=== PATIENT | female | born 1950 | race Caucasian/White ===

== ENCOUNTER 2017-03-31 14:25 | Inpatient (IN) | payer MEDICARE ==
[~2017-03-31] VITALS: Ht 162.6 cm; Wt 79.8 kg
--- NOTE | 2017-03-31 14:26 | NUR ---
BB FAMILY: GPS ADMISSION, NEEDS EVAL/CLEARANCE. VSS.
--- NOTE | 2017-03-31 14:55 | NUR ---
PURCHASING EXPEDITOR AT BEDSIDE BLOOD SAMPLE COLLECTED
[2017-03-31 14:58] LABS: BASOPHILS # (AUTO) 0.1 /CMM (0.0-0.2); BASOPHILS % (AUTO) 1.6 % (0.0-2.0); EOSINOPHILS # (AUTO) 0.2 /CMM (0.0-0.7); EOSINOPHILS % (AUTO) 2.4 % (0.0-6.0); HEMATOCRIT 38 % (33-45); HEMOGLOBIN 12.8 g/dL (11.5-14.8); LYMPHOCYTES # (AUTO) 1.5 /CMM (0.8-4.8); LYMPHOCYTES % (AUTO) 22.2 % (20.0-44.0); MEAN CORPUSCULAR HEMOGLOBIN 30 PG (26.0-33.0); MEAN CORPUSCULAR HGB CONC 34 g/dl (31.0-36.0); MEAN CORPUSCULAR VOLUME 89 fL (82-100); MONOCYTES # (AUTO) 0.5 /CMM (0.1-1.30); MONOCYTES % (AUTO) 7.3 % (2.0-12.0); NEUTROPHILS # (AUTO) 4.6 /CMM (1.8-8.9); NEUTROPHILS % (AUTO) 66.5 % (43.0-81.0); PLATELET COUNT (AUTO) 277 /CMM (150-450); RDW COEFFICIENT OF VARIATION 12.7 (11.5-15.0); RED BLOOD CELL COUNT(AUTO) 4.27 MIL/uL (4.0-5.2); WHITE BLOOD COUNT (AUTO) 6.9 K/uL (4.3-11.0)
[2017-03-31 15:11] LABS: CALCIUM, SERUM 8.9 mg/dL (8.5-10.1); CARBON DIOXIDE 34 mmol/L (21-32); CHLORIDE 102 mmol/L (98-107); GFR 55 mL/min (>60); GLUCOSE 83 mg/dL (74-106); POTASSIUM 3.6 mmol/L (3.5-5.1); SODIUM SERUM 140 mmol/L (136-145); UREA NITROGEN, BLOOD 21 mg/dL (7-18)
[2017-03-31 15:13] LABS: APPEARANCE,URINE Clear (CLEAR); BILIRUBIN,URINE Negative (NEGATIVE); BLOOD, URINE Negative Ery/uL (NEGATIVE); COLOR,URINE Yellow (YELLOW); KETONES,URINE Negative (NEGATIVE); LEUKOCYTE ESTERASE ,URINE Small (NEGATIVE); NITRITE, URINE Negative (NEGATIVE); PH,URINE 5.5 (5.0-8.0); PROTEIN,URINE Negative (NEGATIVE); UGLUCOSE Negative (NEGATIVE); UROBILINOGEN,URINE 0.2 EU/dL (0.2)
[2017-03-31 15:16] LABS: ALANINE AMINOTRANSFERASE 18 U/L (12-78); ALBUMIN 3.9 g/dL (3.4-5.0); ALCOHOL, BLOOD < 3 mg/dL (0-0); ALKALINE PHOSPHATASE 83 U/L (46-116); ASPARTATE AMINOTRANSFERASE 24 U/L (15-37); BILIRUBIN,DIRECT 0.1 mg/dL (0.0-0.2); BILIRUBIN,TOTAL 0.3 mg/dL (0.2-1.0); TOTAL PROTEIN, SERUM 7.9 g/dL (6.4-8.2)
[2017-03-31 15:17] LABS: ACETAMINOPHEN 0 ug/ml (10-30); SALICYLATE 0.9 mg/dL (2.8-20.0)
[2017-03-31 15:29] LABS: ADD URINE CULTURE NO; BACTERIA,URINE None seen /HPF (None Seen); RBC,URINE TOO NUMEROUS TO COUN /HPF (0-2); SQUAMOUS EPITHELIAL CELL,UR Moderate /HPF (None Seen)
[2017-03-31 15:31] LABS: CANNABINOID, URINE NEGATIVE (NEGATIVE); PHENCYCLIDINE SCREEN,URINE NEGATIVE (NEGATIVE)
--- NOTE | 2017-03-31 16:04 | NUR ---
CALLED FRANK CHAOW FOR PSYCH EVAL ETA 30 MIN.
[2017-03-31] MEDS ORDERED: CHOL100030 PO (16:51)
[2017-03-31] MEDS ORDERED: FISH1CAP16 PO (16:51)
[2017-03-31] MEDS ORDERED: ESCI20TA PO (16:51)
[2017-03-31] MEDS ORDERED: CYCL-343 PO ×2 (16:51)
[2017-03-31] MEDS ORDERED: VITA1CAP PO (16:51)
[2017-03-31] MEDS ORDERED: QUET200T PO (16:51)
[2017-03-31] MEDS ORDERED: BISM262T14 PO (16:51)
[2017-03-31] MEDS ORDERED: TRAZ-144 PO (16:51)
[2017-03-31] MEDS ORDERED: ALBU8.5H2 INH (16:51)
[2017-03-31] MEDS ORDERED: LORA10TA7 PO (16:51)
[2017-03-31] MEDS ORDERED: CRAN1CAP7 PO (16:51)
[2017-03-31] MEDS ORDERED: ASPI-991 PO (16:51)
[2017-03-31] MEDS ORDERED: GUAI100S27 PO (16:51)
[2017-03-31] MEDS ORDERED: ALPR0.5T PO (16:51)
[2017-03-31] MEDS ORDERED: RIVA1PAT11 TD (16:51)
[2017-03-31] MEDS ORDERED: FLUT1DIS3 INH (16:51)
--- NOTE | 2017-03-31 18:30 | NUR ---
GAVE REPORT TO ANTHONY SANDERSON PSYCH MD DR KAISER ADMITTING. WAITING FOR ART TO SEE PATIENT . ROOM 214.
--- NOTE | 2017-03-31 19:13 | NUR ---
ART SAW PT HOLD 5150 PT TRASNFER TO THE [facility] VIA
[2017-03-31 19:30] VITALS: BP 147/86
--- NOTE | 2017-03-31 19:30 | NUR ---
GPS ADMISSION NOTE, RECEIVED PATIENT FROM THE [facility]. PATIENT ARRIVED ON THIS UNIT AT 1930 VIA WHEEL CHAIR WITH 1 INFORMATION TECHNOLOGY INTERN ESCORT. PATIENT ADMITTED ON A 5150 HOLD FOR GD. PER HOLD PATIENT WAS AT FACILITY BEING AGGRESSIVE AND COMBATIVE TO STAFF. PATIENT IS UNABLE TO PROVIDE SELF CARE AT THIS TIME. THE 5150 WAS REVIEWED AND THE DOCUMENTATION IN THE 5150 HOLD APPEARS TO REFLECT THE PRESENTATION OF THE PATIENT. UPON FACE TO FACE ASSESSMENT PATIENT IS CURRENTLY LYING IN BED AWAKE, HAS NO S/S OR COMPLAINTS OF PAIN. PATIENT IS DISPLAYING NO S/S OF APPARENT DISTRESS. PATIENT BREATHING IS UNLABORED WITH EQUAL RISE AND FALL OF THE CHEST. PATIENT IS ALERT AND ORIENTATED X 2 ON 2 LITERS OF O2 VIA NASAL CANNULA . PATIENT HAS 1 TO 1 SITTER FOR O2. PATIENT ASSISTED WITH TURING AND REPOSITIONING Q2HR AND PRN FOR COMFORT AND CIRCULATION. PATIENT HAS NO NEEDS AT THIS TIME. PATIENT IS NOTED TO BEING WITHDRAWN, DEPRESSED, DISHEVELED, DISORGANIZED, CONFUSED, COOPERATIVE, AND NEEDS REDIRECTION. PATIENT DENIES SUICIDE IDEATIONS AND HOMICIDAL IDEATIONS AT THIS TIME. PATIENT IS UNDER THE PSYCHIATRIC CARE OF DR. SANDERSON AND THE MEDICAL CARE OF DR KAISER. PATIENT BELONGINGS WERE INVENTORIED AND CHECKED FOR CONTRABAND. ALL CONTRABAND REMOVED AND STORED IN PATIENT HALLWAY LOCKER. PATIENT ADVANCED DIRECTIVES PREFERENCE, IMMUNIZATIONS QUESTIONER, NECESSARY PAPERWORK, AND SKIN ASSESSMENT COMPLETED. PATIENT ORIENTATED TO ROOM, FLOOR, AND STAFF WITH ALL QUESTIONS ANSWERED. PATIENT EDUCATED ON THE USE OF THE CALL ALVA. PATIENT BED SIDE RAILS ARE UP X 2 FOR SAFETY. PATIENT BED IS LOCKED, LOW AND I WILL CONTINUE TO MONITOR THIS PATIENT Q 15 MIN WITH THE HELP OF STAFF TO MAINTAIN SAFETY.
[2017-03-31] MEDS ORDERED: MAGNESIUM HYDROXIDE 30 ML UDC PO PRN (20:30)
[2017-03-31] MEDS ORDERED: MAG HYDROX/AL HYDROX/SIMETH 30 ML UDC PO PRN (20:30)
[2017-03-31] MEDS ORDERED: ACETAMINOPHEN 325 MG TABLET PO PRN (20:30)
[2017-03-31] MEDS ORDERED: ALBUTEROL SULFATE 8 GM HFA.AER.AD IH PRN (22:00)
[2017-04-01 04:57] VITALS: BP 147/86
[2017-04-01 07:09] LABS: CHOLESTEROL 259 mg/dL (<200); CREATININE 0.9 mg/dL (0.6-1.3); HDL CHOLESTEROL 66 mg/dL (40-60); LDL 170 mg/dL (0-99); TRIGLYCERIDES 41 mg/dL (30-150)
[2017-04-01 08:15] VITALS: BP 118/69
[2017-04-01] MEDS ORDERED: ALBUTEROL FS 2.5 MG/3 ML VIAL.NEB NEB PRN (08:30)
[2017-04-01] MEDS: CYCLOBENZAPRINE 10 MG TABLET PO SCH ×2 (08:57→16:05)
[2017-04-01] MEDS: CHOLECALCIFEROL 1,000 UNIT TABLET (VIT D3) PO SCH (08:57)
[2017-04-01] MEDS: VITAMIN B COMP W-C 1 TAB TABLET PO SCH (08:57)
[2017-04-01] MEDS: ASPIRIN EC 81 MG TABLET.DR PO SCH (08:57)
[2017-04-01] MEDS: LORAZEPAM 0.5 MG TABLET PO PRN (09:03)
[2017-04-01] MEDS: RIVASTIGMINE TARTRATE 4.6 MG PATCH.TD24 TD SCH (09:03)
[2017-04-01] MEDS: FLUTICASONE/SALMETEROL DISKUS IH SCH ×2 (09:55→16:06)
[2017-04-01 16:00] VITALS: BP 115/78
[2017-04-01] MEDS: QUETIAPINE FUMARATE 25 MG TABLET PO SCH (16:05)
--- NOTE | 2017-04-01 16:57 | NUR ---
[id number]: NOTIFIED CENTER MACHINE OPERATOR MARISA CURIEL ABOUT LAB RESULTS FOR 03/31/17: CO2= 34, BUN= 21, LDL CHOLESTEROL MEASURD= 170, HDL CHOLESTEROL=66, URINE RBC= TOO NUMEROUS TO COUNT, URINE WBC= 3-5. NO NEW ORDERS GIVEN AT THIS TIME
--- NOTE | 2017-04-01 17:27 | NUR ---
[id number]: SPOKE WITH SIERRA BERGERON POWER OF CELL TOWER CLIMBER AT AND PT IS ON DNR STATUS. NOTIFIED MARISA CURIEL AND ORDER TO CHANGE STATUS FROM FULL CODE TO DNR.
[2017-04-01 20:41] VITALS: BP 109/70
[2017-04-01] MEDS: CEPHALEXIN MONOHYDRATE 500 MG CAPSULE PO SCH (21:16)
[2017-04-01] MEDS: ZOLPIDEM TARTRATE 5 MG TABLET PO PRN (21:17)
[2017-04-01] MEDS: QUETIAPINE FUMARATE 100 MG TABLET PO SCH (21:17)
--- NOTE | 2017-04-02 01:10 | NUR ---
GPS RN PT SUDDENLY BECAME AGGRESSIVE TOWARDS STAFF. SAYING "GET OUT OF MY ROOM". PT HAS BEGAN TO STRIKE AT STAFF. PT IS VERY PARANOID ABOUT THE STAFF BEING IN HER ROOM. PT IS EXHIBITING AUDIBLE WHEEZING. PT WAS ASKED MULTIPLE TIMES TO CALM DOWN, PT IS UNABLE TO UNDERSTAND. PT STATING "IM GOING TO CRISTOBAL YOU, YOU FUCKING ASSHOLE". PT CONTINUES TO STRIKE AT STAFF. PT MANUALLY RESTRAINED BY STAFF. PT DID RECEIVE AMBIEN FOR SLEEP LAST NIGHT, FIRST DOSE. WILL CONTINUE TO MONITOR.
--- NOTE | 2017-04-02 01:20 | NUR ---
GPS BELT MACHINE OPERATOR CONTINUES TO TRY TO KEEP PT CALM AND SAFE. PT IS VERY COMBATIVE. LUCILLE TOMAS AT BEDSIDE, DANNA AT BEDSIDE TO ASSIST FOR PTS AGGRESSIVE BEHAVIOR. WILL CONTINUE TO MONITOR.
[2017-04-02 08:00] VITALS: BP 154/79
[2017-04-02] MEDS: FLUTICASONE/SALMETEROL DISKUS IH SCH ×2 (08:24→16:54)
[2017-04-02] MEDS: CHOLECALCIFEROL 1,000 UNIT TABLET (VIT D3) PO SCH (08:24)
[2017-04-02] MEDS: CEPHALEXIN MONOHYDRATE 500 MG CAPSULE PO SCH ×2 (08:24→21:18)
[2017-04-02] MEDS: VITAMIN B COMP W-C 1 TAB TABLET PO SCH (08:24)
[2017-04-02] MEDS: ASPIRIN EC 81 MG TABLET.DR PO SCH (08:25)
[2017-04-02] MEDS: QUETIAPINE FUMARATE 25 MG TABLET PO SCH ×2 (08:25→16:53)
[2017-04-02] MEDS: ESCITALOPRAM OXALATE (10 MG) 10 MG TABLET PO SCH (08:25)
[2017-04-02] MEDS: CYCLOBENZAPRINE 10 MG TABLET PO SCH ×2 (08:25→16:53)
[2017-04-02] MEDS: RIVASTIGMINE TARTRATE 4.6 MG PATCH.TD24 TD SCH (08:26)
[2017-04-02] MEDS: LORAZEPAM 0.5 MG TABLET PO PRN (08:28)
[2017-04-02 16:00] VITALS: BP 118/69
--- NOTE | 2017-04-02 16:38 | NUR ---
[facility] [address] [facility] [address] ([phone]). target worker spoke to patient's daughter and DPMINNIE Vicki Amado ([phone]) who stated that ideally she would like patient to return to [facility]. However, she stated that they are still looking for another assisted living but they are able to take her home while they find her another placement. target worker spoke to Hamida ([phone]) from the facility and she stated that they would have to come assess before accepting the patient back. target worker will help form a safe and proper discharge.
--- NOTE | 2017-04-02 17:30 | NUR ---
[id number]: NOTIFIED INSPECTOR MACHINED PARTS MARISA CURIEL ABOUT CT HEAD RESULTS. NO NEW ORDERS GIVEN AT THIS TIME.
--- NOTE | 2017-04-02 19:30 | NUR ---
GPS RN NOTE, RECEIVED PATIENT AWAKE AND IN BED, NO S/S OR COMPLAINTS OF PAIN AT THIS TIME. PATIENT IS DISPLAYING NO S/S OF APPARENT DISTRESS AT THIS TIME. PATIENT BREATHING IS UNLABORED WITH EQUAL RISE AND FALL OF THE CHEST. PATIENT IS ON 2 LITER OF O2 VIA NASAL CANNULA. PATIENT IS ALERT AND ORIENTED X 2 ON ROOM AIR WITH A SPO2 94%. PATIENT HAS 1 TO 1 SITTER FOR BEING ON O2. PATIENT COMPLIANT WITH MEDICATIONS, DEPRESSED, AGGRESSIVE WITH CARE, DELUSIONAL, CONFUSED AT TIMES AND NEEDS REORIENTATION. PATIENT DENIES SUICIDE AND HOMICIDAL IDEATIONS AT THIS TIME. PATIENT ASSISTED WITH TURNING AND REPOSITIONING Q2HR AND PRN FOR COMFORT AND CIRCULATION. PATIENT HAS NO NEEDS AT THIS TIME. PATIENT EDUCATED ON THE USE OF THE CALL ALVA. PATIENT BED SIDE RAILS UP X2 FOR SAFETY, BED IS LOCKED AND LOW WILL CONTINUE TO MONITOR AND MAINTAIN SAFETY.
[2017-04-02 19:54] VITALS: BP 125/63
[2017-04-02] MEDS: QUETIAPINE FUMARATE 100 MG TABLET PO SCH (21:18)
[2017-04-02] MEDS: ZOLPIDEM TARTRATE 5 MG TABLET PO PRN (21:23)
--- NOTE | 2017-04-02 21:23 | NUR ---
GPS RN NOTE, PATIENT HAS A COMPLAINT OF NOT BEING ABLE TO SLEEP AND WOULD LIKE A SLEEPING AID AT THIS TIME. PATIENT VITAL SIGNS ARE STABLE. GAVE AMBIEN 5MG PO HS ORDERED. WILL REASSESS FOR INSOMNIA AND I WILL CONTINUE TO MONITOR THIS PATIENT.
[2017-04-03 08:00] VITALS: BP 106/64
[2017-04-03] MEDS: CEPHALEXIN MONOHYDRATE 500 MG CAPSULE PO SCH ×2 (08:41→20:29)
[2017-04-03] MEDS: VITAMIN B COMP W-C 1 TAB TABLET PO SCH (08:41)
[2017-04-03] MEDS: ESCITALOPRAM OXALATE (10 MG) 10 MG TABLET PO SCH (08:41)
[2017-04-03] MEDS: CHOLECALCIFEROL 1,000 UNIT TABLET (VIT D3) PO SCH (08:41)
[2017-04-03] MEDS: ASPIRIN EC 81 MG TABLET.DR PO SCH (08:41)
[2017-04-03] MEDS: CYCLOBENZAPRINE 10 MG TABLET PO SCH ×2 (08:41→16:34)
[2017-04-03] MEDS: QUETIAPINE FUMARATE 25 MG TABLET PO SCH ×2 (08:41→16:35)
[2017-04-03] MEDS: RIVASTIGMINE TARTRATE 4.6 MG PATCH.TD24 TD SCH (08:42)
[2017-04-03] MEDS: FLUTICASONE/SALMETEROL DISKUS IH SCH ×2 (08:43→16:30)
--- NOTE | 2017-04-03 14:51 | NUR ---
Psychosocial assessment was reviewed and I concur with the information provided. No changes are necessary. Chantell Bella, [facility] [id number]
[2017-04-03] MEDS: BOOST PLUS FOOD-CHOCLATE 237 ML BOX PO SCH (15:37)
[2017-04-03 16:00] VITALS: BP 119/70
--- NOTE | 2017-04-03 16:06 | NUR ---
DR. WATKINS NOTIFIED ABOUT THE EKG RESULT AND NO NW ORDER.
[2017-04-03 20:00] VITALS: BP 107/65
[2017-04-03] MEDS: QUETIAPINE FUMARATE 100 MG TABLET PO SCH (21:09)
[2017-04-03] MEDS: ZOLPIDEM TARTRATE 5 MG TABLET PO PRN (22:27)
[2017-04-04] MEDS: RIVASTIGMINE TARTRATE 4.6 MG PATCH.TD24 TD SCH (09:00)
[2017-04-04] MEDS: ESCITALOPRAM OXALATE (10 MG) 10 MG TABLET PO SCH ×2 (09:00→13:13)
[2017-04-04] MEDS: QUETIAPINE FUMARATE 25 MG TABLET PO SCH ×3 (09:00→16:23)
[2017-04-04] MEDS: ASPIRIN EC 81 MG TABLET.DR PO SCH (09:00)
[2017-04-04] MEDS: FLUTICASONE/SALMETEROL DISKUS IH SCH ×2 (09:00→16:23)
[2017-04-04] MEDS: CHOLECALCIFEROL 1,000 UNIT TABLET (VIT D3) PO SCH (09:00)
[2017-04-04] MEDS: CEPHALEXIN MONOHYDRATE 500 MG CAPSULE PO SCH ×2 (09:00→21:24)
[2017-04-04] MEDS: CYCLOBENZAPRINE 10 MG TABLET PO SCH ×2 (09:00→16:23)
[2017-04-04] MEDS: BOOST PLUS FOOD-CHOCLATE 237 ML BOX PO SCH ×2 (10:00→14:03)
--- NOTE | 2017-04-04 11:05 | NUR ---
BRUISES NOTED ON BOTH ARMS AND REFUSED FOR PICTURE. Addendum: 04/04/17 at 1320 by LYDIA CABRALES RN PT. REFUSED FOR FURTHER SKIN ASSESSMENT.
--- NOTE | 2017-04-04 13:14 | NUR ---
AFTER DR. WATKINS SPOKE TO PT. SHE ORDERED TO GIVE LEXAPRO 20 MG NOW AND GIVE SEROQUEL 50 MG NOW AND OK TO GIVE ANOTHER DOSE OF SEROQUEL 50 MG DUE FOR 1699.
--- NOTE | 2017-04-04 14:36 | NUR ---
MARISA CURIEL CAME IN THE UNIT AND NOTIFIED THAT PT. REFUSED TO EAT AND REFUSED PO MEDS.
[2017-04-04 16:00] VITALS: BP 111/68
--- NOTE | 2017-04-04 16:31 | NUR ---
dry cure worker spoke to patient's daughter and DPOA Vicki Amado ([phone]) who stated that they were looking to possibly placing patient at [facility], [id number] [place] [address] Rd. [facility] [address] ([phone]). However, she was open to other Assisted Living Facilities. dry cure worker will follow-up.
[2017-04-04 20:00] VITALS: BP 117/62
[2017-04-04] MEDS: QUETIAPINE FUMARATE 100 MG TABLET PO SCH (21:23)
[2017-04-04] MEDS: ZOLPIDEM TARTRATE 5 MG TABLET PO PRN (21:24)
[2017-04-05 07:31] LABS: CALCIUM, SERUM 8.9 mg/dL (8.5-10.1); POTASSIUM 3.9 mmol/L (3.5-5.1)
[2017-04-05 08:18] VITALS: BP 96/55
[2017-04-05] MEDS: CHOLECALCIFEROL 1,000 UNIT TABLET (VIT D3) PO SCH (08:56)
[2017-04-05] MEDS: ASPIRIN EC 81 MG TABLET.DR PO SCH (08:56)
[2017-04-05] MEDS: FLUTICASONE/SALMETEROL DISKUS IH SCH ×2 (08:56→16:23)
[2017-04-05] MEDS: QUETIAPINE FUMARATE 25 MG TABLET PO SCH ×2 (08:56→16:23)
[2017-04-05] MEDS: ESCITALOPRAM OXALATE (10 MG) 10 MG TABLET PO SCH (08:56)
[2017-04-05] MEDS: RIVASTIGMINE TARTRATE 4.6 MG PATCH.TD24 TD SCH (08:57)
[2017-04-05] MEDS: CYCLOBENZAPRINE 10 MG TABLET PO SCH ×2 (08:57→16:23)
[2017-04-05] MEDS: BOOST PLUS FOOD-CHOCLATE 237 ML BOX PO SCH ×2 (08:58→15:04)
[2017-04-05 16:00] VITALS: BP 106/66
[2017-04-05 20:00] VITALS: BP 112/65
[2017-04-05] MEDS ORDERED: QUETIAPINE FUMARATE 100 MG TABLET PO SCH (22:00)
[2017-04-05] MEDS: ZOLPIDEM TARTRATE 5 MG TABLET PO PRN (22:05)
[2017-04-06] MEDS: ESCITALOPRAM OXALATE (10 MG) 10 MG TABLET PO SCH (08:33)
[2017-04-06] MEDS: FLUTICASONE/SALMETEROL DISKUS IH SCH ×2 (08:33→16:45)
[2017-04-06] MEDS: ASPIRIN EC 81 MG TABLET.DR PO SCH (08:33)
[2017-04-06] MEDS: RIVASTIGMINE TARTRATE 4.6 MG PATCH.TD24 TD SCH (08:33)
[2017-04-06] MEDS: CYCLOBENZAPRINE 10 MG TABLET PO SCH ×2 (08:34→16:47)
[2017-04-06] MEDS: CHOLECALCIFEROL 1,000 UNIT TABLET (VIT D3) PO SCH (08:34)
[2017-04-06] MEDS: LORAZEPAM 0.5 MG TABLET PO PRN (08:34)
[2017-04-06] MEDS: BOOST PLUS FOOD-CHOCLATE 237 ML BOX PO SCH ×2 (08:36→14:18)
--- NOTE | 2017-04-06 08:54 | NUR ---
administered ativan 0.5 mg po prn for anxiety, yelling, screaming, crying, paranoia, bp-135/78,p-90, continued monitoring.
[2017-04-06] MEDS ORDERED: QUETIAPINE FUMARATE 25 MG TABLET PO SCH (09:00)
[2017-04-06] MEDS: QUETIAPINE FUMARATE 25 MG TABLET PO SCH (16:47)
[2017-04-06 20:12] VITALS: BP 111/75
[2017-04-06] MEDS ORDERED: QUETIAPINE FUMARATE 100 MG TABLET PO SCH (22:00)
[2017-04-07 08:00] VITALS: BP 128/73
[2017-04-07] MEDS: CYCLOBENZAPRINE 10 MG TABLET PO SCH ×2 (08:38→17:24)
[2017-04-07] MEDS: LORAZEPAM 0.5 MG TABLET PO PRN (08:38)
[2017-04-07] MEDS: ASPIRIN EC 81 MG TABLET.DR PO SCH (08:38)
[2017-04-07] MEDS: CHOLECALCIFEROL 1,000 UNIT TABLET (VIT D3) PO SCH (08:38)
[2017-04-07] MEDS: QUETIAPINE FUMARATE 25 MG TABLET PO SCH ×2 (08:38→17:24)
[2017-04-07] MEDS: ESCITALOPRAM OXALATE (10 MG) 10 MG TABLET PO SCH (08:38)
[2017-04-07] MEDS: RIVASTIGMINE TARTRATE 4.6 MG PATCH.TD24 TD SCH (08:38)
[2017-04-07] MEDS: FLUTICASONE/SALMETEROL DISKUS IH SCH ×2 (08:42→17:24)
[2017-04-07] MEDS: BOOST PLUS FOOD-CHOCLATE 237 ML BOX PO SCH ×2 (09:41→14:24)
[2017-04-07] MEDS: clonazePAM 0.5 MG TABLET PO SCH ×2 (12:43→17:24)
[2017-04-07 16:26] VITALS: BP 126/76
[2017-04-07 20:00] VITALS: BP 119/77
[2017-04-07] MEDS: QUETIAPINE FUMARATE 100 MG TABLET PO SCH (22:11)
[2017-04-08] MEDS: ASPIRIN EC 81 MG TABLET.DR PO SCH (08:14)
[2017-04-08] MEDS: QUETIAPINE FUMARATE 25 MG TABLET PO SCH ×2 (08:14→16:24)
[2017-04-08] MEDS: CHOLECALCIFEROL 1,000 UNIT TABLET (VIT D3) PO SCH (08:14)
[2017-04-08] MEDS: ESCITALOPRAM OXALATE (10 MG) 10 MG TABLET PO SCH (08:14)
[2017-04-08] MEDS: clonazePAM 0.5 MG TABLET PO SCH ×2 (08:15→16:24)
[2017-04-08] MEDS: RIVASTIGMINE TARTRATE 4.6 MG PATCH.TD24 TD SCH (08:15)
[2017-04-08] MEDS: CYCLOBENZAPRINE 10 MG TABLET PO SCH ×2 (08:15→16:24)
[2017-04-08] MEDS: FLUTICASONE/SALMETEROL DISKUS IH SCH ×2 (08:22→16:32)
[2017-04-08 08:26] VITALS: BP 121/68
[2017-04-08] MEDS: BOOST PLUS FOOD-CHOCLATE 237 ML BOX PO SCH ×2 (10:27→15:39)
--- NOTE | 2017-04-08 15:38 | NUR ---
willow worker spoke to patient's daughter and MAICOL Vicki ([phone]) who stated that she would like [place] to return [address] [place] [address]. willow worker spoke to Hamida from [facility] who confirmed that patient can return to their facility upon discharge.
[2017-04-08 16:00] VITALS: BP 109/68
--- NOTE | 2017-04-08 19:27 | NUR ---
GPS/RN NOTE: RECEIVED AWAKE, ALERT, ORIENTED X3, QUIET, CALM, COMFORTABLE. NO ACUTE DISTRESS NOTED.
[2017-04-08 20:16] VITALS: BP 109/65
[2017-04-08] MEDS: QUETIAPINE FUMARATE 100 MG TABLET PO SCH (22:08)
[2017-04-09] MEDS: ESCITALOPRAM OXALATE (10 MG) 10 MG TABLET PO SCH (07:57)
[2017-04-09] MEDS: QUETIAPINE FUMARATE 25 MG TABLET PO SCH (07:57)
[2017-04-09] MEDS: RIVASTIGMINE TARTRATE 4.6 MG PATCH.TD24 TD SCH (07:57)
[2017-04-09] MEDS: CHOLECALCIFEROL 1,000 UNIT TABLET (VIT D3) PO SCH (07:58)
[2017-04-09] MEDS: ASPIRIN EC 81 MG TABLET.DR PO SCH (07:58)
[2017-04-09] MEDS: CYCLOBENZAPRINE 10 MG TABLET PO SCH (07:58)
[2017-04-09] MEDS: clonazePAM 0.5 MG TABLET PO SCH (07:58)
[2017-04-09 08:00] VITALS: BP 130/77
[2017-04-09] MEDS: FLUTICASONE/SALMETEROL DISKUS IH SCH (08:04)
[2017-04-09] MEDS: BOOST PLUS FOOD-CHOCLATE 237 ML BOX PO SCH ×2 (11:16→14:16)
[2017-04-09] MEDS ORDERED: QUETIAPINE FUMARATE 25 MG TABLET PO STA (11:26)
[2017-04-09] MEDS ORDERED: GABAPENTIN 100 MG CAPSULE PO SCH ×2 (11:30→12:00)
--- NOTE | 2017-04-09 13:34 | NUR ---
pt. is violent she said "get out of my room" and pt start yelling. charge nurse notified. Addendum: 04/09/17 at 1335 by VAL WHITLOCK RT Amended: Links added.
--- NOTE | 2017-04-09 15:20 | NUR ---
DISCHARGE NOTES/ PATIENT D/C AT THIS TIME FROM GPS, GOING [facility]. PATIENT A/O X2/3, CONFUSED ON 2L OXYGEN VIA NC. PATIENT DENIED SI/HI/AVH . MED RECONCILIATION AND DISCHARGE ORDER REVIEWED AND EXPLAINED TO THE PATIENT , AND DAUGHTER. DAUGHTER NAME ZOHRA VERBALIZED UNDERSTANDING. BELONGING RETURNED BACK TO THE PATIENT. PATIENT REFUSED PICTURE TO BE TAKEN. PATIENT DIRECTOR DIETETICS DEPARTMENT BY DAUGHTER NAME ZOHRA. MED RECONCILIATION FAXED TO THE [facility]. PATIENT DIRECTOR DIETETICS DEPARTMENT BY DAUGHTER. ESCORTED PATIENT TO THE LOBBY FOR SAFETY.
[2017-04-09] MEDS ORDERED: QUETIAPINE FUMARATE 100 MG TABLET PO SCH (17:00)
[2017-04-09] MEDS ORDERED: VANCOMYCIN 500 MG VIAL PO SCH (18:00)
--- NOTE | 2017-04-10 14:09 | NUR ---
Discharge Note: Patient was discharged to [facility] [address] [facility] [address] ([phone]). Patient's daughter and DPOA Vicki Amado ([phone]) was informed and was agreeable with the discharge plan. Patient's daughter Vicki picked up the patient via private vehicle and was going to transport her to [facility]. Patient's mood and affect were appropriate. Patient denied suicidal and homicidal ideations. transportation worker encouraged patient and patient's daughter to schedule an appointment with her psychiatrist Dr. Sylwia Mcmahon within 30 days. Patient's daughter agreed to follow-up. Facilitated info to IDT team who are in agreement with discharge arrangement. The multidisciplinary exitcare form was done, printed, signed, and given to the patient.
== END 2017-04-09 15:20 | DRG 885 ==
LOC: ER 14:28 → GPS 18:12
PROVIDERS: ADMIT Psychiatry & Neurology Psychiatry; ATTEND Family Medicine
DX: F29 Unspecified psychosis not due to a substance or known physiological condition (principal); F02.80 Dementia in other diseases classified elsewhere, unspecified severity, without behavioral disturbance, psychotic disturbance, mood disturbance, and anxiety; N39.0 Urinary tract infection, site not specified; G30.9 Alzheimer's disease, unspecified; I10 Essential (primary) hypertension; J44.9 Chronic obstructive pulmonary disease, unspecified; Z86.73 Personal history of transient ischemic attack (TIA), and cerebral infarction without residual deficits; Z90.12 Acquired absence of left breast and nipple; Z85.3 Personal history of malignant neoplasm of breast; R31.9 Hematuria, unspecified; Z73.6 Limitation of activities due to disability; Z99.81 Dependence on supplemental oxygen; B96.89 Other specified bacterial agents as the cause of diseases classified elsewhere; Z79.899 Other long term (current) drug therapy
CPT/HCPCS: 36415; 70450-TC; 80048-TC; 80061-TC; 80076-TC; 80305; 81000-TC; 82565-TC; 84443-TC; 85025-TC; 87081-TC; 94799-TC; 97001-TC; 97116-TC; 97530-TC; A4606; G0480; G6039-TC; Z7610